=== PATIENT | female | born 1980 | race American Indian/Alaskan Native ===

== ENCOUNTER 2017-11-24 22:35 | Emergency (ER) | payer MEDICARE, OTHER ==
[2017-11-25] MEDS ORDERED: NACL 0.9% 1000 ML 1,000 ML IV ONE (00:15)
[2017-11-25 00:52] LABS: Hematocrit 35.3 % (30.3-42.9); Hemoglobin 12.2 gm/dl (10.1-14.3); Mean Corpuscular HGB Conc 35 % (30-34); Mean Corpuscular Hemoglobin 30 pg (28-32); Mean Corpuscular Volume 87 fl (79-97); Platelet Count 275 K/mm3 (140-440); Red Blood Count 4.07 M/mm3 (3.65-5.03); Red Cell Distribution Width 14.8 % (13.2-15.2)
[2017-11-25 01:08] LABS: Alanine Aminotransferase 15 units/L (7-56); Albumin 4.1 g/dL (3.9-5); BUN/Creatinine Ratio 11; Blood Urea Nitrogen 9 mg/dL (7-17); Calcium 9.2 mg/dL (8.4-10.2); Hemolysis Index 30
[2017-11-25 01:09] LABS: Bacteria,Urine 1+ /HPF (Negative); Bilirubin,Urine NEG (Negative); Blood,Urine NEG (Negative); Color,Urine Yellow (Yellow); Mucus,Urine FEW /HPF; Protein,Urine <15 mg/dL mg/dL (Negative)
[2017-11-25 06:14] LABS: Total Cells Counted 100
[2017-11-25 06:16] LABS: Anisocytosis 1+; Burr Cells Few
[2017-11-25] MEDS ORDERED: FIORICET PO ONE (10:42)
[2017-11-25] MEDS ORDERED: DELTASONE PO ONE (10:42)
[2017-11-25] MEDS ORDERED: REGLAN PO ONE (10:42)
--- NOTE | 2017-11-25 10:46 | Emergency Department Report ---
ED General Adult HPI - General Chief complaint: Abdominal Pain Stated complaint: STOMACH PAIN Time Seen by Provider: 11/25/17 10:25 Source: patient Mode of arrival: Ambulatory Limitations: No Limitations - History of Present Illness Initial comments: Patient complains of abdominal pain as well as chest pain for the last 2 days and has been constant in nature. Patient also complains of having daily headaches upon awakening data not have any relief with [id number] medications. Patient states these headaches have been present for over a year. Patient has no other complaints. -: Gradual Location: head, chest, abdomen Radiation: non-radiation Severity scale (0 -10): 6 Improves with: none Worsens with: none Associated Symptoms: denies other symptoms Treatments Prior to Arrival: NSAID, Aspirin - Related Data Home Medications Medication Instructions Recorded Confirmed Last Taken Hydroxyzine HCl [hydrOXYzine] 50 mg PO PRN PRN 02/15/14 08/21/15 1 Week Ago ~08/14/15 Oxycodone HCl/Acetaminophen 5 - 325 tab PO TID PRN 07/10/15 08/21/15 2 Days Ago [Endocet 2.5-325 mg Tablet] ~08/19/15 Quetiapine Fumarate [Seroquel] 200 mg PO PRN PRN 07/10/15 08/21/15 1 Week Ago ~08/14/15 Rivaroxaban [Xarelto] 20 mg PO DAILY 07/10/15 08/21/15 08/21/15 06:00 Previous Rx's Medication Instructions Recorded Last Taken Type oxyCODONE [Roxicodone TAB] 5 mg PO Q6HR PRN #30 tablet 07/10/15 2 Days Ago Rx ~08/19/15 Butalb/Acetamin/Caff 50-325-40 1 tab PO Q8HR PRN #24 tablet 11/25/17 Unknown Rx [Fioricet] Dicyclomine [Bentyl] 20 mg PO QID PRN #20 tablet 11/25/17 Unknown Rx Allergies Allergy/AdvReac Type Severity Reaction Status Date / Time tramadol Allergy Swelling Verified 07/10/15 06:35 ED Review of Systems ROS: Stated complaint: STOMACH PAIN Other details as noted in HPI Comment: All other systems reviewed and negative Constitutional: denies: chills, fever Eyes: denies: eye pain, eye discharge, vision change ENT: denies: ear pain, throat pain Respiratory: denies: cough, shortness of breath, wheezing Cardiovascular: chest pain. denies: palpitations Endocrine: no symptoms reported Gastrointestinal: abdominal pain. denies: nausea, diarrhea Genitourinary: denies: urgency, dysuria, discharge Musculoskeletal: denies: back pain, joint swelling, arthralgia Skin: denies: rash, lesions Neurological: denies: headache, weakness, paresthesias Psychiatric: denies: anxiety, depression Hematological/Lymphatic: denies: easy bleeding, easy bruising ED Past Medical Hx - Past Medical History Previous Medical History?: Yes Hx Deep Vein Thrombosis: Yes (ivc filter removed 07/10/2015) Hx GERD: Yes Hx Psychiatric Treatment: Yes - Surgical History Past Surgical History?: Yes Additional Surgical History: Tubal Ligation. Filter - Social History Smoking Status: Current Every Day Smoker Substance Use Type: None - Medications Home Medications: Home Medications Medication Instructions Recorded Confirmed Last Taken Type Hydroxyzine HCl [hydrOXYzine] 50 mg PO PRN PRN 02/15/14 08/21/15 1 Week Ago History ~08/14/15 Oxycodone HCl/Acetaminophen 5 - 325 tab PO TID PRN 07/10/15 08/21/15 2 Days Ago History [Endocet 2.5-325 mg Tablet] ~08/19/15 Quetiapine Fumarate [Seroquel] 200 mg PO PRN PRN 07/10/15 08/21/15 1 Week Ago History ~08/14/15 Rivaroxaban [Xarelto] 20 mg PO DAILY 07/10/15 08/21/15 08/21/15 06:00 History oxyCODONE [Roxicodone TAB] 5 mg PO Q6HR PRN #30 tablet 07/10/15 08/21/15 2 Days Ago Rx ~08/19/15 Butalb/Acetamin/Caff 50-325-40 1 tab PO Q8HR PRN #24 tablet 11/25/17 Unknown Rx [Fioricet] Dicyclomine [Bentyl] 20 mg PO QID PRN #20 tablet 11/25/17 Unknown Rx ED Physical Exam - General Limitations: No Limitations General appearance: alert, in no apparent distress - Head Head exam: Present: atraumatic, normocephalic - Eye Eye exam: Present: normal appearance - ENT ENT exam: Present: mucous membranes moist - Neck Neck exam: Present: normal inspection - Respiratory Respiratory exam: Present: normal lung sounds bilaterally. Absent: respiratory distress, wheezes, rales, rhonchi - Cardiovascular Cardiovascular Exam: Present: regular rate, normal rhythm. Absent: systolic murmur, diastolic murmur, rubs, gallop - GI/Abdominal GI/Abdominal exam: Present: soft, normal bowel sounds, other (the palpation of the suprapubic region). Absent: distended, tenderness - Extremities Exam Extremities exam: Present: normal inspection - Back Exam Back exam: Present: normal inspection - Neurological Exam Neurological exam: Present: alert, oriented X3, CN II-XII intact, normal gait, reflexes normal. Absent: motor sensory deficit - Psychiatric Psychiatric exam: Present: normal affect, normal mood - Skin Skin exam: Present: warm, dry, intact, normal color. Absent: rash ED Course Vital Signs 11/25/17 11/25/17 00:10 11:30 Temperature 98.3 F Pulse Rate 55 L Respiratory 14 18 Rate Blood Pressure 115/36 O2 Sat by Pulse 100 Oximetry ED Medical Decision Making - Lab Data Result diagrams: 11/25/17 00:21 11/25/17 00:21 - EKG Data EKG shows normal: sinus rhythm Rate: bradycardia - EKG Data Interpretation: no acute changes, other (normal sinus rhythm with a rate of 53. No ST elevations. Normal intervals) - Medical Decision Making Discussed results with the patient Patient had complete relief of headache with medications Critical care attestation.: If time is entered above; I have spent that time in minutes in the direct care of this critically ill patient, excluding procedure time. ED Disposition Clinical Impression: Headache, Abdominal pain, Nonspecific chest pain Disposition: TO HOME OR SELFCARE Is pt being admited?: No Does the pt Need Aspirin: No Condition: Stable Instructions: Chest Pain (ED), Acute Headache (ED), Abdominal Pain (ED) Additional Instructions: return if worse Prescriptions: Butalb/Acetamin/Caff 50-325-40 [Fioricet] 1 tab PO Q8HR PRN #24 tablet PRN Reason: Headache Dicyclomine [Bentyl] 20 mg PO QID PRN #20 tablet PRN Reason: pain Referrals: PRIMARY CARE, [Primary Care Provider] - 3-5 Days [facility] [Provider Group] - 3-5 Days [facility] [Outside] - 3-5 Days Forms: Work/School Release Form(ED) Time of Disposition: 13:24
[2017-11-25] MEDS ORDERED: NACL 0.9% 1000 ML 1,000 ML ONE (10:59)
[2017-11-25 11:36] LABS: Lipase 33 units/L (13-60)
--- NOTE | 2017-11-25 11:57 | Cat Scan Report ---
CT HEAD WITHOUT CONTRAST: HISTORY: Headache. TECHNIQUE: Sequential 2.5mm CT images. COMPARISON: none. FINDINGS: Cerebral Parenchyma: Within normal limits. Cerebellum: Within normal limits. Brainstem: Within normal limits. Ventricles: Normal. Sella: Normal. Extra-axial spaces: Normal. Basal Cisterns: Normal. Intracranial Hemorrhage: None. Midline Shift: None. Calvarium: Normal. Sinuses: Normal. Mastoid Air Cells: Normal. Visualized Orbits: Normal. IMPRESSION: Cranial CT scan within normal limits.
[2017-11-25] MEDS ORDERED: MORPHINE IV ONE (12:16)
[2017-11-25] MEDS ORDERED: ZOFRAN IV ONE (12:16)
[2017-11-25 13:49] VITALS: BP 122/68
== END 2017-11-25 13:48 | disposition home or self-care (01) ==
LOC: ED 22:35
DX: R10.9 Unspecified abdominal pain (principal); R07.9 Chest pain, unspecified; R51 Headache; K21.9 Gastro-esophageal reflux disease without esophagitis; F17.200 Nicotine dependence, unspecified, uncomplicated; Z86.718 Personal history of other venous thrombosis and embolism; Z98.51 Tubal ligation status
CPT/HCPCS: 36415; 70450; 80053; 81001; 83690; 84484; 84703; 85007; 85025; 93005; 93010; 96361; 96374; 96375; 99284; J2270; J2405; J7030; J7512